=== PATIENT | female | born 1985 | race Caucasian/White ===

== ENCOUNTER 2021-07-19 09:57 | Outpatient (CLI) | payer MEDICAID, SELFPAY ==
[~2021-07-19] VITALS: Ht 149.9 cm; Wt 64.9 kg
== END 2021-07-19 13:00 | disposition home or self-care (01) ==
LOC: SLB 09:57 → EDSTATUS 08-06 11:00
PROVIDERS: ATTEND Internal Medicine
DX: M51.86 Other intervertebral disc disorders, lumbar region (principal); Z01.812 Encounter for preprocedural laboratory examination; Z20.822 Contact with and (suspected) exposure to COVID-19; Z53.8 Procedure and treatment not carried out for other reasons
CPT/HCPCS: U0003